=== PATIENT | female | born 1940 | race Caucasian/White ===

== ENCOUNTER 2016-07-08 05:18 | Inpatient (IN) | payer MEDICARE, BC ==
[2016-07-08] MEDS: SODIUM CHLORIDE 0.9% FLUSH 10 ML SOL IV PRN (05:45)
[2016-07-08] MEDS: SCOPOLAMINE 1.5MG PATCH TD SCH (05:45)
[2016-07-08] MEDS ORDERED: LACTATED RINGERS 1,000 ML IV ONE (06:30)
[2016-07-08] MEDS ORDERED: SODIUM CHLORIDE 20 ML 40 ML ONE (07:12)
[2016-07-08] MEDS ORDERED: TETRACAINE HCL 1% SOL ONE (07:21)
[2016-07-08] MEDS ORDERED: PROPOFOL 500 MG/50 ML EMU IV ONE ×2 (07:24→09:07)
[2016-07-08] MEDS ORDERED: DEXAMETHASONE 20 MG/5 ML (4 MG/ML SOL) ONE (07:24)
[2016-07-08] MEDS ORDERED: ONDANSETRON HCL 4 MG/2 ML SOL ONE (07:24)
[2016-07-08] MEDS ORDERED: LIDOCAINE HCL 1% MPF SOL ONE (07:24)
[2016-07-08] MEDS ORDERED: MIDAZOLAM 2 MG/2 ML SOL ONE (07:24)
[2016-07-08] MEDS ORDERED: METOCLOPRAMIDE HYDROCHLORIDE 5 MG/ML SOL ONE (07:24)
[2016-07-08] MEDS ORDERED: KETAMINE HYDROCHLORIDE 50 MG/ML SOL ONE (07:24)
[2016-07-08] MEDS ORDERED: LACTATED RINGERS 1,000 ML IV SCH (07:30)
[2016-07-08] MEDS ORDERED: HYDROMORPHONE HCL 2 MG/ML 1 ML SOL ONE (07:32)
[2016-07-08] MEDS ORDERED: CEFAZOLIN SODIUM 1 GM PDS ONE (08:13)
[2016-07-08] MEDS ORDERED: FENTANYL CITRATE 50 MCG/ML SOL ONE (09:03)
[2016-07-08] MEDS: BUPIVACAINE HCL 0.25% MPF 10 ML SOL INFIL ONE ×4 (09:19→10:49)
[2016-07-08] MEDS: BUPIVACAINE LIPOSOME 20 ML SUS ONE ×4 (09:19→10:49)
[2016-07-08] MEDS ORDERED: LABETALOL HYDROCHLORIDE 5 MG/ML SOL IV ONE (09:29)
[2016-07-08] MEDS: TRANEXAMIC ACID 100 MG/ML SOL ONE ×2 (09:53→10:50)
[2016-07-08] MEDS ORDERED: PROPOFOL 10 MG/ML EMU IV ONE ×2 (10:02→10:40)
[2016-07-08] MEDS ORDERED: SODIUM CHLORIDE 0.9% 500 ML 500 ML IV PRN (11:53)
[2016-07-08] MEDS ORDERED: ALUMINUM/MAGNESIUM 30 ML SUS PO PRN (11:53)
[2016-07-08] MEDS ORDERED: BISACODYL 10 MG SUP PR PRN (11:53)
[2016-07-08] MEDS ORDERED: ZOLPIDEM TARTRATE 5 MG TAB PO PRN (11:53)
[2016-07-08] MEDS ORDERED: ONDANSETRON HCL 4 MG/2 ML SOL IV PRN (11:53)
[2016-07-08] MEDS ORDERED: MAGNESIUM HYDROXIDE 30 ML SUS PO PRN (11:53)
[2016-07-08] MEDS ORDERED: ACETAMINOPHEN 325 MG PO PRN (11:53)
[2016-07-08] MEDS ORDERED: DIAZEPAM 5 MG TAB PO PRN (11:53)
[2016-07-08] MEDS ORDERED: FLEET ENEMA PR PRN (11:53)
[2016-07-08] MEDS ORDERED: HYDROMORPHONE HCL 2 MG/ML 1 ML SOL IV PRN (11:53)
[2016-07-08] MEDS ORDERED: ONDANSETRON 4 MG ODT BU PRN (11:53)
[2016-07-08] MEDS ORDERED: CEFAZOLIN 1 GM IV SCH (12:00)
[2016-07-08] MEDS: DEXTROSE/SALINE 0.45/KCL 20MEQ 1,000 ML IV SCH (13:24)
[2016-07-08] MEDS: SODIUM CHLORIDE 0.9% FLUSH 10 ML SOL IV SCH ×2 (13:25→19:34)
[2016-07-08] MEDS: CEFAZOLIN 1 GM IV SCH (16:47)
[2016-07-08] MEDS: APAP/OXYCODONE 325/5 TAB PO PRN (19:32)
[2016-07-08] MEDS: GABAPENTIN 300 MG CAP PO SCH (20:43)
[2016-07-08] MEDS: SENNOSIDES A AND B 8.6 MG TAB PO SCH (20:43)
[2016-07-08] MEDS ORDERED: DIPHENHYDRAMINE 25 MG/10 ML ELI PO PRN (21:32)
[2016-07-09] MEDS: CEFAZOLIN 1 GM IV SCH (00:02)
[2016-07-09] MEDS: SODIUM CHLORIDE 0.9% FLUSH 10 ML SOL IV PRN (00:40)
[2016-07-09] MEDS: DEXTROSE/SALINE 0.45/KCL 20MEQ 1,000 ML IV SCH (01:32)
[2016-07-09] MEDS: APAP/OXYCODONE 325/5 TAB PO PRN ×4 (03:16→20:43)
[2016-07-09] MEDS: SODIUM CHLORIDE 0.9% FLUSH 10 ML SOL IV SCH ×3 (06:59→20:44)
[2016-07-09 07:26] LABS: MEAN CORPUSCULAR HGB CONC 34.8 gm/dl (32.0-36.0)
[2016-07-09] MEDS: FERROUS SULFATE 325 MG TAB PO SCH (08:38)
[2016-07-09] MEDS: RIVAROXABAN 10 MG TAB PO SCH (08:38)
[2016-07-09] MEDS: GABAPENTIN 300 MG CAP PO SCH ×2 (08:38→20:43)
[2016-07-09] MEDS: CHOLECALCIFEROL 1,000 IU TAB PO SCH (09:59)
[2016-07-09] MEDS: CALCIUM CARBONATE 500 MG TAB PO SCH ×3 (10:00→20:43)
[2016-07-09] MEDS: MULTIVITAMIN2 1 EA TAB PO SCH (10:00)
[2016-07-09] MEDS: FISH OIL 500 MG CAP PO SCH ×2 (10:03→20:43)
[2016-07-09] MEDS: GLUCOSAM PO SCH ×2 (10:04→20:44)
[2016-07-09] MEDS: CHONDROITIN SULFATE PO SCH ×2 (10:04→20:44)
[2016-07-09] MEDS: SENNOSIDES A AND B 8.6 MG TAB PO SCH (20:43)
[2016-07-10] MEDS: APAP/OXYCODONE 325/5 TAB PO PRN ×5 (02:36→23:45)
[2016-07-10] MEDS: SODIUM CHLORIDE 0.9% FLUSH 10 ML SOL IV SCH ×4 (02:37→19:29)
[2016-07-10 07:20] LABS: MEAN CORPUSCULAR HGB CONC 34.9 gm/dl (32.0-36.0)
[2016-07-10] MEDS: GABAPENTIN 300 MG CAP PO SCH ×3 (08:35→20:59)
[2016-07-10] MEDS: CHONDROITIN SULFATE PO SCH ×3 (08:36→20:58)
[2016-07-10] MEDS: GLUCOSAM PO SCH ×3 (08:36→20:58)
[2016-07-10] MEDS: FERROUS SULFATE 325 MG TAB PO SCH (08:36)
[2016-07-10] MEDS: CALCIUM CARBONATE 500 MG TAB PO SCH ×4 (08:37→20:59)
[2016-07-10] MEDS: FISH OIL 500 MG CAP PO SCH ×3 (08:37→20:58)
[2016-07-10] MEDS: RIVAROXABAN 10 MG TAB PO SCH (08:37)
[2016-07-10] MEDS: MULTIVITAMIN2 1 EA TAB PO SCH (08:38)
[2016-07-10] MEDS: CHOLECALCIFEROL 1,000 IU TAB PO SCH ×3 (08:39→21:00)
[2016-07-10] MEDS: SENNOSIDES A AND B 8.6 MG TAB PO SCH ×2 (18:47→20:59)
[2016-07-10] MEDS: PANTOPRAZOLE SODIUM 40 MG ECT PO SCH (18:49)
[2016-07-11] MEDS: APAP/OXYCODONE 325/5 TAB PO PRN (05:06)
[2016-07-11] MEDS: SCOPOLAMINE 1.5MG PATCH TD SCH (05:08)
[2016-07-11 07:31] LABS: MEAN CORPUSCULAR HGB CONC 34.7 gm/dl (32.0-36.0)
[2016-07-11] MEDS: PANTOPRAZOLE SODIUM 40 MG ECT PO SCH (08:35)
[2016-07-11] MEDS: CHOLECALCIFEROL 1,000 IU TAB PO SCH (08:35)
[2016-07-11] MEDS: MULTIVITAMIN2 1 EA TAB PO SCH (08:35)
[2016-07-11] MEDS: RIVAROXABAN 10 MG TAB PO SCH (08:35)
[2016-07-11] MEDS: GABAPENTIN 300 MG CAP PO SCH (08:36)
[2016-07-11] MEDS: CALCIUM CARBONATE 500 MG TAB PO SCH (08:36)
[2016-07-11] MEDS: FISH OIL 500 MG CAP PO SCH (08:36)
[2016-07-11] MEDS: CHONDROITIN SULFATE PO SCH (08:36)
[2016-07-11] MEDS: FERROUS SULFATE 325 MG TAB PO SCH (08:36)
[2016-07-11] MEDS: GLUCOSAM PO SCH (08:36)
[2016-07-11 08:58] VITALS: BP 136/76; PULSE 86; RESP 23; TEMP 98.4; O2SAT 94
== END 2016-07-11 10:30 | disposition swing bed (61) | DRG 462 ==
LOC: ACUTE CARE 05:18
PROVIDERS: ADMIT Orthopaedic Surgery; ATTEND Orthopaedic Surgery
PROC: 0SRC0J9 Replacement of Right Knee Joint with Synthetic Substitute, Cemented, Open Approach (ICD-10-PCS; 2016-07-08)
PROC: F01ZDFZ Gait and/or Balance Assessment using Assistive, Adaptive, Supportive or Protective Equipment (ICD-10-PCS; 2016-07-08)
PROC: F01ZCZZ Transfer Assessment (ICD-10-PCS; 2016-07-08)
PROC: F02Z1ZZ Dressing Assessment (ICD-10-PCS; 2016-07-08)
PROC: F07Z9FZ Gait Training/Functional Ambulation Treatment using Assistive, Adaptive, Supportive or Protective Equipment (ICD-10-PCS; 2016-07-08)
PROC: 0SRD0J9 Replacement of Left Knee Joint with Synthetic Substitute, Cemented, Open Approach (ICD-10-PCS; principal; 2016-07-08 08:00)
DX: M17.0 Bilateral primary osteoarthritis of knee (principal); R10.13 Epigastric pain; Z96.653 Presence of artificial knee joint, bilateral
CPT/HCPCS: 36415; 73560; 85027; 85049; 94150; 99070; J0690; J1100; J1170; J2250; J2405; J2765; J3010; A6232; J2001; J2704

== ENCOUNTER 2016-07-11 09:18 | Inpatient (IN) | payer MEDICARE, BC ==
[2016-07-11] MEDS ORDERED: APAP/OXYCODONE 325/5 TAB ONE (11:20)
[2016-07-11] MEDS: APAP/OXYCODONE 325/5 TAB PO PRN ×3 (11:20→23:30)
[2016-07-11] MEDS ORDERED: ACETAMINOPHEN 325 MG PO PRN (11:39)
[2016-07-11] MEDS ORDERED: MAGNESIUM HYDROXIDE 30 ML SUS PO PRN (11:39)
[2016-07-11] MEDS ORDERED: DIAZEPAM 5 MG TAB PO PRN (11:39)
[2016-07-11] MEDS ORDERED: BISACODYL 10 MG SUP PR PRN (11:39)
[2016-07-11] MEDS ORDERED: ONDANSETRON 4 MG ODT BU PRN (11:39)
[2016-07-11] MEDS ORDERED: FLEET ENEMA PR PRN (11:39)
[2016-07-11] MEDS ORDERED: ALUMINUM/MAGNESIUM 30 ML SUS PO PRN (11:39)
[2016-07-11] MEDS ORDERED: ZOLPIDEM TARTRATE 5 MG TAB PO PRN (11:39)
[2016-07-11] MEDS: CHOLECALCIFEROL 1,000 IU TAB PO SCH (18:44)
[2016-07-11] MEDS: GABAPENTIN 300 MG CAP PO SCH (18:46)
[2016-07-11] MEDS: FISH OIL 500 MG CAP PO SCH (18:47)
[2016-07-11] MEDS: SENNOSIDES A AND B 8.6 MG TAB PO SCH (18:48)
[2016-07-11] MEDS: CHONDROITIN SULFATE PO SCH (18:49)
[2016-07-11] MEDS: GLUCOSAM PO SCH (18:49)
[2016-07-11] MEDS: CALCIUM CARBONATE 500 MG TAB PO SCH (19:57)
[2016-07-11] MEDS ORDERED: CALCIUM CARBONATE 500 MG TAB PO SCH (21:00)
[2016-07-11] MEDS ORDERED: GLUCOSAM PO SCH (21:00)
[2016-07-11] MEDS ORDERED: GABAPENTIN 300 MG CAP PO SCH (21:00)
[2016-07-11] MEDS ORDERED: FISH OIL 500 MG CAP PO SCH (21:00)
[2016-07-11] MEDS ORDERED: CHONDROITIN SULFATE PO SCH (21:00)
[2016-07-11] MEDS ORDERED: SENNOSIDES A AND B 8.6 MG TAB PO SCH (21:00)
[2016-07-12] MEDS: APAP/OXYCODONE 325/5 TAB PO PRN ×4 (04:02→20:07)
[2016-07-12 07:35] LABS: BASOPHILS % (AUTO) 1 % (0-3); EOSINOPHILS % (AUTO) 2 % (0-9); HEMATOCRIT 25 % (35-47); MEAN CORPUSCULAR HGB CONC 34.8 gm/dl (32.0-36.0); MEAN CORPUSCULAR VOLUME 90 fL (81-99); MONOCYTES % (AUTO) 8.2 % (0-12); NEUTROPHILS % (AUTO) 69.9 % (37-80)
[2016-07-12] MEDS: [UNRECOGNIZED DRUG - OTHER] PO SCH (08:33)
[2016-07-12] MEDS: CAFFEINE PO SCH (08:33)
[2016-07-12] MEDS: ACETAMINOPHEN PO SCH (08:33)
[2016-07-12] MEDS: ASPIRIN PO SCH (08:33)
[2016-07-12] MEDS: CHONDROITIN SULFATE PO SCH ×2 (08:34→18:22)
[2016-07-12] MEDS: GLUCOSAM PO SCH ×2 (08:34→18:22)
[2016-07-12] MEDS: FISH OIL 500 MG CAP PO SCH ×2 (08:35→18:23)
[2016-07-12] MEDS: FERROUS SULFATE 325 MG TAB PO SCH (08:35)
[2016-07-12] MEDS: CALCIUM CARBONATE 500 MG TAB PO SCH ×3 (08:36→18:23)
[2016-07-12] MEDS: GABAPENTIN 300 MG CAP PO SCH ×2 (08:36→18:23)
[2016-07-12] MEDS: MULTIVITAMIN2 1 EA TAB PO SCH (08:37)
[2016-07-12] MEDS: PANTOPRAZOLE SODIUM 40 MG ECT PO SCH (08:37)
[2016-07-12] MEDS: CHOLECALCIFEROL 1,000 IU TAB PO SCH ×2 (08:37→18:22)
[2016-07-12] MEDS: RIVAROXABAN 10 MG TAB PO SCH (08:38)
[2016-07-12] MEDS ORDERED: RIVAROXABAN 10 MG TAB PO SCH (09:00)
[2016-07-12] MEDS: SENNOSIDES A AND B 8.6 MG TAB PO SCH (18:23)
[2016-07-13] MEDS: APAP/OXYCODONE 325/5 TAB PO PRN ×6 (00:02→21:07)
[2016-07-13] MEDS: [UNRECOGNIZED DRUG - OTHER] PO SCH (08:29)
[2016-07-13] MEDS: GLUCOSAM PO SCH ×2 (08:29→18:12)
[2016-07-13] MEDS: ACETAMINOPHEN PO SCH (08:29)
[2016-07-13] MEDS: CHONDROITIN SULFATE PO SCH ×2 (08:29→18:12)
[2016-07-13] MEDS: ASPIRIN PO SCH (08:29)
[2016-07-13] MEDS: CAFFEINE PO SCH (08:29)
[2016-07-13] MEDS: FISH OIL 500 MG CAP PO SCH ×2 (08:30→18:11)
[2016-07-13] MEDS: FERROUS SULFATE 325 MG TAB PO SCH (08:30)
[2016-07-13] MEDS: GABAPENTIN 300 MG CAP PO SCH ×2 (08:31→18:13)
[2016-07-13] MEDS: CALCIUM CARBONATE 500 MG TAB PO SCH ×3 (08:32→18:11)
[2016-07-13] MEDS: PANTOPRAZOLE SODIUM 40 MG ECT PO SCH (08:33)
[2016-07-13] MEDS: MULTIVITAMIN2 1 EA TAB PO SCH (08:33)
[2016-07-13] MEDS: CHOLECALCIFEROL 1,000 IU TAB PO SCH ×2 (08:34→18:12)
[2016-07-13] MEDS: RIVAROXABAN 10 MG TAB PO SCH (08:34)
[2016-07-13] MEDS: SENNOSIDES A AND B 8.6 MG TAB PO SCH (18:14)
[2016-07-14] MEDS: APAP/OXYCODONE 325/5 TAB PO PRN ×7 (00:42→23:56)
[2016-07-14] MEDS: FERROUS SULFATE 325 MG TAB PO SCH (08:42)
[2016-07-14] MEDS: GLUCOSAM PO SCH ×2 (08:42→18:16)
[2016-07-14] MEDS: CHONDROITIN SULFATE PO SCH ×2 (08:42→18:16)
[2016-07-14] MEDS: CALCIUM CARBONATE 500 MG TAB PO SCH ×3 (08:43→18:17)
[2016-07-14] MEDS: GABAPENTIN 300 MG CAP PO SCH ×2 (08:43→18:16)
[2016-07-14] MEDS: FISH OIL 500 MG CAP PO SCH ×2 (08:43→18:16)
[2016-07-14] MEDS: CHOLECALCIFEROL 1,000 IU TAB PO SCH ×2 (08:44→18:15)
[2016-07-14] MEDS: MULTIVITAMIN2 1 EA TAB PO SCH (08:44)
[2016-07-14] MEDS: PANTOPRAZOLE SODIUM 40 MG ECT PO SCH (08:44)
[2016-07-14] MEDS: ACETAMINOPHEN PO SCH (08:45)
[2016-07-14] MEDS: [UNRECOGNIZED DRUG - OTHER] PO SCH (08:45)
[2016-07-14] MEDS: RIVAROXABAN 10 MG TAB PO SCH (08:45)
[2016-07-14] MEDS: ASPIRIN PO SCH (08:45)
[2016-07-14] MEDS: CAFFEINE PO SCH (08:45)
[2016-07-14] MEDS: SENNOSIDES A AND B 8.6 MG TAB PO SCH (18:18)
[2016-07-15] MEDS: APAP/OXYCODONE 325/5 TAB PO PRN ×5 (04:06→20:31)
[2016-07-15 08:03] VITALS: RESP 16
[2016-07-15] MEDS: FISH OIL 500 MG CAP PO SCH ×2 (08:54→18:21)
[2016-07-15] MEDS: CHONDROITIN SULFATE PO SCH ×2 (08:55→18:18)
[2016-07-15] MEDS: [UNRECOGNIZED DRUG - OTHER] PO SCH (08:55)
[2016-07-15] MEDS: ASPIRIN PO SCH (08:55)
[2016-07-15] MEDS: FERROUS SULFATE 325 MG TAB PO SCH (08:55)
[2016-07-15] MEDS: ACETAMINOPHEN PO SCH (08:55)
[2016-07-15] MEDS: CAFFEINE PO SCH (08:55)
[2016-07-15] MEDS: GLUCOSAM PO SCH ×2 (08:55→18:18)
[2016-07-15] MEDS: CALCIUM CARBONATE 500 MG TAB PO SCH ×3 (08:56→18:24)
[2016-07-15] MEDS: CHOLECALCIFEROL 1,000 IU TAB PO SCH ×2 (08:56→18:19)
[2016-07-15] MEDS: GABAPENTIN 300 MG CAP PO SCH ×2 (08:56→18:21)
[2016-07-15] MEDS: PANTOPRAZOLE SODIUM 40 MG ECT PO SCH (08:56)
[2016-07-15] MEDS: MULTIVITAMIN2 1 EA TAB PO SCH (08:56)
[2016-07-15] MEDS: RIVAROXABAN 10 MG TAB PO SCH (08:57)
[2016-07-15] MEDS: SENNOSIDES A AND B 8.6 MG TAB PO SCH (18:25)
[2016-07-16] MEDS: APAP/OXYCODONE 325/5 TAB PO PRN ×6 (00:37→23:41)
[2016-07-16] MEDS: PANTOPRAZOLE SODIUM 40 MG ECT PO SCH (08:44)
[2016-07-16] MEDS: FERROUS SULFATE 325 MG TAB PO SCH (08:44)
[2016-07-16] MEDS: GABAPENTIN 300 MG CAP PO SCH ×2 (08:44→18:03)
[2016-07-16] MEDS: CHOLECALCIFEROL 1,000 IU TAB PO SCH ×2 (08:45→18:02)
[2016-07-16] MEDS: MULTIVITAMIN2 1 EA TAB PO SCH (08:45)
[2016-07-16] MEDS: CALCIUM CARBONATE 500 MG TAB PO SCH ×3 (08:45→18:02)
[2016-07-16] MEDS: CHONDROITIN SULFATE PO SCH ×2 (08:46→18:03)
[2016-07-16] MEDS: RIVAROXABAN 10 MG TAB PO SCH (08:46)
[2016-07-16] MEDS: GLUCOSAM PO SCH ×2 (08:46→18:03)
[2016-07-16] MEDS: ASPIRIN PO SCH (08:47)
[2016-07-16] MEDS: [UNRECOGNIZED DRUG - OTHER] PO SCH (08:47)
[2016-07-16] MEDS: ACETAMINOPHEN PO SCH (08:47)
[2016-07-16] MEDS: CAFFEINE PO SCH (08:47)
[2016-07-16] MEDS: FISH OIL 500 MG CAP PO SCH ×2 (08:47→18:03)
[2016-07-16] MEDS: SENNOSIDES A AND B 8.6 MG TAB PO SCH (18:03)
[2016-07-17] MEDS: APAP/OXYCODONE 325/5 TAB PO PRN ×5 (03:58→21:41)
[2016-07-17] MEDS: CHONDROITIN SULFATE PO SCH ×2 (09:36→18:06)
[2016-07-17] MEDS: GLUCOSAM PO SCH ×2 (09:36→18:06)
[2016-07-17] MEDS: FERROUS SULFATE 325 MG TAB PO SCH (09:37)
[2016-07-17] MEDS: FISH OIL 500 MG CAP PO SCH ×2 (09:38→18:06)
[2016-07-17] MEDS: CALCIUM CARBONATE 500 MG TAB PO SCH ×3 (09:39→18:08)
[2016-07-17] MEDS: GABAPENTIN 300 MG CAP PO SCH ×2 (09:39→18:07)
[2016-07-17] MEDS: MULTIVITAMIN2 1 EA TAB PO SCH (09:40)
[2016-07-17] MEDS: PANTOPRAZOLE SODIUM 40 MG ECT PO SCH (09:40)
[2016-07-17] MEDS: CHOLECALCIFEROL 1,000 IU TAB PO SCH ×2 (09:41→18:06)
[2016-07-17] MEDS: ASPIRIN PO SCH (09:42)
[2016-07-17] MEDS: CAFFEINE PO SCH (09:42)
[2016-07-17] MEDS: ACETAMINOPHEN PO SCH (09:42)
[2016-07-17] MEDS: [UNRECOGNIZED DRUG - OTHER] PO SCH (09:42)
[2016-07-17] MEDS: RIVAROXABAN 10 MG TAB PO SCH (09:42)
[2016-07-17] MEDS: SENNOSIDES A AND B 8.6 MG TAB PO SCH (18:07)
[2016-07-18] MEDS: APAP/OXYCODONE 325/5 TAB PO PRN ×3 (01:55→09:56)
[2016-07-18] MEDS: CHONDROITIN SULFATE PO SCH (08:37)
[2016-07-18] MEDS: GLUCOSAM PO SCH (08:37)
[2016-07-18] MEDS: CAFFEINE PO SCH (08:38)
[2016-07-18] MEDS: [UNRECOGNIZED DRUG - OTHER] PO SCH (08:38)
[2016-07-18] MEDS: ACETAMINOPHEN PO SCH (08:38)
[2016-07-18] MEDS: ASPIRIN PO SCH (08:38)
[2016-07-18] MEDS: CHOLECALCIFEROL 1,000 IU TAB PO SCH (08:38)
[2016-07-18] MEDS: PANTOPRAZOLE SODIUM 40 MG ECT PO SCH (08:40)
[2016-07-18] MEDS: CALCIUM CARBONATE 500 MG TAB PO SCH (08:40)
[2016-07-18] MEDS: GABAPENTIN 300 MG CAP PO SCH (08:41)
[2016-07-18] MEDS: MULTIVITAMIN2 1 EA TAB PO SCH (08:41)
[2016-07-18] MEDS: RIVAROXABAN 10 MG TAB PO SCH (08:42)
[2016-07-18] MEDS: FERROUS SULFATE 325 MG TAB PO SCH (09:30)
[2016-07-18] MEDS: FISH OIL 500 MG CAP PO SCH (09:31)
[2016-07-18 10:06] VITALS: BP 135/69; PULSE 77; TEMP 98.6; O2SAT 95
== END 2016-07-18 11:00 | disposition home or self-care (01) | DRG 561 ==
LOC: ACUTE CARE 10:35
PROVIDERS: ADMIT Family Medicine; ATTEND Family Medicine
PROC: F01ZDFZ Gait and/or Balance Assessment using Assistive, Adaptive, Supportive or Protective Equipment (ICD-10-PCS; principal; 2016-07-11)
PROC: F01ZBZZ Bed Mobility Assessment (ICD-10-PCS; 2016-07-11)
PROC: F01ZCZZ Transfer Assessment (ICD-10-PCS; 2016-07-11)
PROC: F02Z1ZZ Dressing Assessment (ICD-10-PCS; 2016-07-11)
PROC: F02Z3ZZ Grooming/Personal Hygiene Assessment (ICD-10-PCS; 2016-07-11)
PROC: F07Z9FZ Gait Training/Functional Ambulation Treatment using Assistive, Adaptive, Supportive or Protective Equipment (ICD-10-PCS; 2016-07-11)
DX: Z47.1 Aftercare following joint replacement surgery (principal); Z96.653 Presence of artificial knee joint, bilateral
CPT/HCPCS: 36415; 85025

== ENCOUNTER 2016-08-19 15:19 | Outpatient (CLI) | payer MEDICARE, BC ==
[2016-07-18 10:06] VITALS: O2SAT 95
== END 2016-08-19 15:20 | disposition home or self-care (01) | DRG 561 ==
LOC: CONVCARE 15:19
PROVIDERS: ATTEND Orthopaedic Surgery
DX: Z47.1 Aftercare following joint replacement surgery (principal); Z96.653 Presence of artificial knee joint, bilateral
CPT/HCPCS: 73560

== ENCOUNTER 2017-07-28 10:18 | Outpatient (CLI) | payer MEDICARE, BC ==
[2016-07-18 10:06] VITALS: O2SAT 95
== END 2017-07-28 10:19 | disposition home or self-care (01) | DRG 561 ==
LOC: CONVCARE 10:18
PROVIDERS: ATTEND Orthopaedic Surgery
DX: Z47.1 Aftercare following joint replacement surgery (principal); M62.81 Muscle weakness (generalized); Z96.653 Presence of artificial knee joint, bilateral
CPT/HCPCS: 72040; 73562

== ENCOUNTER 2017-08-13 09:29 | Emergency (ER) | payer MEDICARE, BC ==
[2017-08-13 09:50] VITALS: RESP 18; TEMP 98
[2017-08-13] MEDS ORDERED: ASPIRIN 81 MG CHEWABLE CTB ONE (10:43)
[2017-08-13] MEDS ORDERED: SODIUM CHLORIDE 0.9% FLUSH 10 ML SOL IV PRN (11:08)
[2017-08-13 12:44] LABS: HEMOGLOBIN A1C 5.6 % (4.8-6.0)
[2017-08-13 13:16] VITALS: BP 136/85; PULSE 68; O2SAT 98
[2017-08-14] MEDS ORDERED: ASPIRIN EC 81 MG PO SCH (09:00)
== END 2017-08-13 13:15 | disposition home or self-care (01) | DRG 69 ==
LOC: ED 09:29
DX: G45.9 Transient cerebral ischemic attack, unspecified (principal); R40.2142 Coma scale, eyes open, spontaneous, at arrival to emergency department; R40.2362 Coma scale, best motor response, obeys commands, at arrival to emergency department; R40.2252 Coma scale, best verbal response, oriented, at arrival to emergency department; R73.09 Other abnormal glucose; R53.1 Weakness
CPT/HCPCS: 36415; 70450; 70544; 70549; 70551; 80061; 83036; 99285

== ENCOUNTER → 2017-09-16 | Day surgery (SDC) | payer MEDICARE, BC ==
[~2017-09-16] MED LIST: ACETAZOLAMIDE 250 MG PO ONE; BSS 500 ML 500 ML IR ONE; FENTANYL 100MCG/2ML SOL ONE; LIDOCAINE HCL 1% MPF SOL ONE; MIDAZOLAM 2 MG/2 ML SOL ONE; POVIDONE IODINE 5% SOL ONE
[2017-09-16] MEDS: PROPARACAINE HCL 0.5% OPHTHALMIC SOL ONE ×3 (09:22→10:28)
[2017-09-16] MEDS: PHENYLEPHRINE HCL 10% OPHTHAL SOL ONE ×2 (09:22→09:34)
[2017-09-16] MEDS: CYCLOPENTOLATE 1% SOL ONE ×2 (09:22→09:35)
[2017-09-16] MEDS: KETOROLAC 0.5% OPTH 60 DROP SOL ONE ×2 (09:23→09:35)
[2017-09-16 09:28] VITALS: TEMP 97.8
[2017-09-16] MEDS: TRIAMCINOLONE ACETONIDE 10 MG/ML VIAL ONE ×2 (10:38→10:45)
[2017-09-16] MEDS: CEFUROXIME SODIUM/0.9% NACL/PF 10 MG/ML VIAL IO ONE ×2 (10:38→10:44)
[2017-09-16 11:03] VITALS: BP 140/86; PULSE 67; RESP 20; O2SAT 94
== END | disposition home or self-care (01) | DRG 125 ==
LOC: SURG 09:00
PROVIDERS: ATTEND Ophthalmology
DX: H25.9 Unspecified age-related cataract (principal)
CPT/HCPCS: J2250; J3010; A9270-GY; J0697; J2001; J3300

== ENCOUNTER 2017-10-14 08:00 | Day surgery (SDC) | payer MEDICARE, BC ==
[2017-10-14] MEDS ORDERED: ACETAZOLAMIDE 250 MG PO ONE (08:11)
[2017-10-14] MEDS: PROPARACAINE HCL 0.5% OPHTHALMIC SOL ONE ×3 (08:20→09:32)
[2017-10-14] MEDS: PHENYLEPHRINE HCL 10% OPHTHAL SOL ONE ×2 (08:21→08:34)
[2017-10-14] MEDS: CYCLOPENTOLATE 1% SOL ONE ×2 (08:22→08:35)
[2017-10-14] MEDS: KETOROLAC 0.5% OPTH 60 DROP SOL ONE ×2 (08:23→08:35)
[2017-10-14] MEDS ORDERED: MIDAZOLAM 2 MG/2 ML SOL ONE (09:13)
[2017-10-14] MEDS ORDERED: FENTANYL 100MCG/2ML SOL ONE (09:13)
[2017-10-14] MEDS ORDERED: BSS 500 ML 500 ML IR ONE (09:25)
[2017-10-14] MEDS ORDERED: POVIDONE IODINE 5% SOL ONE (09:25)
[2017-10-14] MEDS ORDERED: LIDOCAINE HCL 1% MPF SOL ONE (09:25)
[2017-10-14 10:04] VITALS: BP 136/68; PULSE 79; RESP 20; TEMP 97.1; O2SAT 96
== END 2017-10-14 10:20 | disposition home or self-care (01) | DRG 125 ==
LOC: SURG 08:00
PROVIDERS: ATTEND Ophthalmology
DX: H26.9 Unspecified cataract (principal)
CPT/HCPCS: J2250; J3010; A9270-GY; J2001

== ENCOUNTER 2018-10-17 19:50 | Emergency (ER) | payer MEDICARE, BC ==
[2018-10-17 20:09] VITALS: TEMP 97.5
[2018-10-17] MEDS ORDERED: ALBUTEROL/IPRATROPIUM 1 VIAL SOL INH PRN (20:42)
[2018-10-17] MEDS ORDERED: ALBUTEROL/IPRATROPIUM 1 VIAL SOL ONE (20:55)
[2018-10-17] MEDS ORDERED: NIFEDIPINE 10 MG SGL PO SCH (21:00)
[2018-10-17 21:02] LABS: BASOPHILS % (AUTO) 1 % (0-3); EOSINOPHILS % (AUTO) 2 % (0-9); HEMATOCRIT 41 % (35-47); HEMOGLOBIN 13.4 gm/dl (12.0-15.5); MEAN CORPUSCULAR HEMOGLOBIN 30.6 pg (27.0-32.0); MEAN CORPUSCULAR HGB CONC 32.5 gm/dl (32.0-36.0); MEAN CORPUSCULAR VOLUME 94 fL (81-99); MONOCYTES % (AUTO) 9.4 % (0-12)
[2018-10-17 21:10] LABS: CARBON DIOXIDE 31.7 mEq/L (21-32); CREATININE 0.57 mg/dl (0.60-1.00); POTASSIUM 3.9 mMol/L (3.5-5.1)
[2018-10-17] MEDS ORDERED: NIFEDIPINE 30 MG ER TABLET ONE (21:34)
[2018-10-17] MEDS ORDERED: LABETALOL HYDROCHLORIDE 100 MG TAB ONE (21:42)
[2018-10-17] MEDS: LABETALOL HYDROCHLORIDE 100 MG TAB PO ONE ×2 (21:46)
[2018-10-17] MEDS ORDERED: PREDNISONE 20 MG TAB PO ONE (21:56)
[2018-10-17] MEDS ORDERED: PREDNISONE 20 MG TAB ONE (21:59)
[2018-10-17 23:38] VITALS: BP 180/84; PULSE 78; RESP 18; O2SAT 95
== END 2018-10-17 22:26 | disposition home or self-care (01) | DRG 153 ==
LOC: ED 19:50
DX: J06.9 Acute upper respiratory infection, unspecified (principal); R06.02 Shortness of breath; R06.2 Wheezing
CPT/HCPCS: 36415; 71046; 80048; 85025; 93005; 99283; 99284; A9270-GY

== ENCOUNTER 2019-01-05 19:33 | Emergency (ER) | payer MEDICARE, BC ==
[2019-01-05 19:49] VITALS: TEMP 97.3
[2019-01-05 20:29] LABS: BASOPHILS % (AUTO) 0 % (0-3); EOSINOPHILS % (AUTO) 0 % (0-9); HEMATOCRIT 42 % (35-47); HEMOGLOBIN 13.6 gm/dl (12.0-15.5); MEAN CORPUSCULAR HEMOGLOBIN 31.6 pg (27.0-32.0); MEAN CORPUSCULAR HGB CONC 32.7 gm/dl (32.0-36.0); MEAN CORPUSCULAR VOLUME 97 fL (81-99); MONOCYTES % (AUTO) 4.8 % (0-12); NEUTROPHILS % (AUTO) 81.6 % (37-80)
[2019-01-05 20:48] LABS: ALBUMIN 3.7 gm/dl (3.4-5.0); ALKALINE PHOSPHATASE 65 IU/L (46-116); ALT 37 IU/L (14-63); AST 28 IU/L (15-37); BILIRUBIN,TOTAL 0.2 mg/dl (0.2-1.0); BLOOD UREA NITROGEN 28 mg/dl (7-18); CALCIUM 9.3 mg/dl (8.5-10.1); CARBON DIOXIDE 31.8 mEq/L (21-32); CHLORIDE 104 mMol/L (98-107); CREATININE 0.75 mg/dl (0.60-1.00); GLUCOSE 196 mg/dl (74-106); TOTAL PROTEIN 6.8 gm/dl (6.4-8.2); TROP I < 0.017 ng/ml (0.000-0.056)
[2019-01-05 20:50] LABS: CRP INFLAMMATORY 0.04 mg/dl (0.00-0.33)
[2019-01-05 20:53] VITALS: O2SAT 97
[2019-01-05 20:54] LABS: APPEARANCE,URINE Clear; BILIRUBIN,URINE NEGATIVE (NEGATIVE); COLOR,URINE Yellow; GLUCOSE, URINE (UA) NEGATIVE (NEGATIVE); KETONES,URINE NEGATIVE (NEGATIVE); LEUKOCYTE ESTERASE ,URINE NEGATIVE (NEGATIVE); NITRATE,URINE NEGATIVE (NEGATIVE); OCCULT BLOOD,URINE NEGATIVE (NEG-TRACE); PH,URINE 7.5; UROBILINOGEN,URINE 0.2 (0.2-1.0 EU)
[2019-01-05 21:02] LABS: BACTERIA 2+ (< 1+); CRYSTALS NEGATIVE (0-3 AVE/HPF); EPITHELIAL CELLS NEGATIVE (SQUAMOUS); RBC,URINE NEG (0-3AV/HPF); WBC,URINE NEG (0-5AV/HPF)
[2019-01-05 21:40] VITALS: BP 152/95; PULSE 81; RESP 16
== END 2019-01-05 21:45 | disposition home or self-care (01) | DRG 948 ==
LOC: ED 19:33
DX: R53.1 Weakness (principal); R53.83 Other fatigue; R07.9 Chest pain, unspecified; Z79.899 Other long term (current) drug therapy
CPT/HCPCS: 36415; 71046; 80053; 81001; 83735; 84484; 85025; 85379; 86140; 87088; 93005; 99283